=== PATIENT | female | born 1955 | race Caucasian/White ===

== ENCOUNTER 2017-02-22 16:57 | Emergency (ER) | payer OTHER, BC ==
[~2017-02-22] VITALS: Ht 177.8 cm; Wt 83.0 kg
[~2017-02-22 16:57] MED LIST: HYDR-3533 PO; IBUP-232 PO; PAXI10TA PO; PROM25SU8 PO
[2017-02-22 17:02] VITALS: BP 158/80; PULSE 83; RESP 16; TEMP 97.9; O2SAT 94
--- NOTE | 2017-02-22 18:05 | PD ---
HPI Chief Complaint: Laceration/Skin Injury Time Seen by Provider: 17:56 Travel History International Travel<30 days: No Contact w/Intl Traveler<30days: No Traveled to known affect area: No History of Present Illness HPI 61-year-old female here with laceration to the left brow. She reports while at [employer] she bent down to pick something up off the floor when her ankle twisted and she fell to the floor hitting her head. There was no loss of consciousness. She is not anticoagulated. She denies headache, neck pain, visual changes, chest pain, abdominal pain, paresthesia or weakness in extremities. Symptom severity is moderate. No aggravating or alleviating factors. 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) ?: Not Menopausal: Yes Past Surgical History Section: Yes Cholecystectomy: Yes Other Surgery: Yes (PILONIDAL CYST) Social History Alcohol Use: Yes ("SEVERAL GLASSES WINE PER WEEK") Tobacco Use: No Substance Use: No Allergies-Medications (Allergen,Severity, Reaction): Coded Allergies: No Known Allergies (Unverified Adverse Reaction, Unknown, 02/22/17) Reported Meds & Prescriptions Reported Meds & Active Scripts Active No Active Prescriptions or Reported Medications Review of Systems Except as stated in HPI: all other systems reviewed are Neg General / Constitutional: No: Fever Eyes: No: Visual changes HENT: No: Headaches Cardiovascular: No: Chest Pain or Discomfort Respiratory: No: Shortness of Breath Gastrointestinal: No: Abdominal Pain Genitourinary: No: Dysuria Physical Exam Narrative GENERAL: Alert female. Well-appearing. SKIN: Small laceration and abrasion to the left eyebrow. Superficial abrasions to bilateral palms and left knee. HEAD: Normocephalic. Mild swelling to left upper brow. No eyelid involvement. No orbital tenderness. No nasal bone tenderness. EYES: Pupils equal, round, react to light. EOMs intact. No injection or drainage. NOSE: No deformity. Nasal bones nontender. No septal hematoma. NECK: Supple, trachea midline. No cervical midline tenderness. CARDIOVASCULAR: Regular rate and rhythm without murmurs, gallops, or rubs. No chest wall tenderness. RESPIRATORY: Breath sounds equal bilaterally. No accessory muscle use. GASTROINTESTINAL: Abdomen soft, non-tender, nondistended. MUSCULOSKELETAL: No cyanosis, or edema. Superficial abrasions to bilateral palms and left knee. No bony tenderness. Patient has full range of motion and normal sensation in all extremities. BACK: Nontender without obvious deformity. No CVA tenderness. Data Data Last Documented VS Vital Signs Date Time Temp Pulse Resp B/P (MAP) Pulse Ox O2 Delivery O2 Flow Rate FiO2 02/22/17 17:02 97.9 83 16 158/80 (106) 94 MDM Medical Decision Making Medical Screen Exam Complete: Yes Emergency Medical Condition: Yes Differential Diagnosis Facial contusion, facial fracture, facial laceration, ICH Narrative Course 61-year-old female here after a mechanical fall with contusion and laceration to her left brow. No loss of consciousness. Patient is not anticoagulated. She has a normal neurologic exam. Patient does have mild amount notable swelling and small laceration to the left brow/forehead. Maxillofacial CT recommended patient declined. She does not believe she has a facial fracture. Risk of missed injury discussed with patient. She verbalizes understanding. Laceration repair performed. She will follow up with her primary doctor for recheck. Return precautions discussed. Patient verbalizes understanding and agrees to plan Procedures Procedure Narrative LACERATION LOCATION: Left eyebrow LENGTH: 0.5CM NUMBER OF STITCHES/ZULLY: 2 REPAIR: The area of the laceration was prepped with Betadine and sterilely draped. The laceration was infiltrated with 1% lidocaine with epi. The wound was copiously irrigated and explored without evidence of foreign body, tendon injury or neurovascular injury. The wound was closed using 5-0 Prolene. This was a single layer repair. A sterile dressing was applied. The patient was advised to keep the dressing clean and dry. Patient tolerated the procedure well. Diagnosis Primary Impression: Facial laceration Qualified Codes: S01.81XA - Laceration without foreign body of other part of head, initial encounter Referrals: Primary Care Physician Additional Instructions: Sutures need removal in 7-10 days. Tylenol or ibuprofen as needed for pain and discomfort. Return to emergency department if he developed new or worsening symptoms such as severe headache, vomiting, mental confusion, visual changes Scripts No Active Prescriptions or Reported Meds Disposition: 01 DISCHARGE HOME Condition: Stable Hayley Lim Feb 22, 2017 18:05
== END 2017-02-22 18:19 | disposition home or self-care (01) ==
LOC: PHEFT 16:57
DX: S01.112A Laceration without foreign body of left eyelid and periocular area, initial encounter (principal); S00.12XA Contusion of left eyelid and periocular area, initial encounter; S60.512A Abrasion of left hand, initial encounter; S60.511A Abrasion of right hand, initial encounter; S80.212A Abrasion, left knee, initial encounter; F32.9 Major depressive disorder, single episode, unspecified; W18.30XA Fall on same level, unspecified, initial encounter; X50.1XXA Overexertion from prolonged static or awkward postures, initial encounter; Y92.512 Supermarket, store or market as the place of occurrence of the external cause
CPT/HCPCS: 12011